=== PATIENT | male | born 1955 | race Caucasian/White ===

== ENCOUNTER → 2016-11-28 | Outpatient (CLI) | payer OTHER ==
[2016-11-28 14:40] LABS: CHOLESTEROL/HDL RATIO 3.2
[2016-11-28 17:22] LABS: LYME DISEASE AB IGM NEG (NEG)
[2016-11-28 17:25] LABS: LYME DISEASE AB IGG NEG (NEG)
== END | disposition home or self-care (01) ==
LOC: C.LABBC 11:59
PROVIDERS: ATTEND Physician Assistant Medical
DX: Z00.00 Encounter for general adult medical examination without abnormal findings (principal); M54.2 Cervicalgia; Z11.59 Encounter for screening for other viral diseases

== ENCOUNTER → 2017-03-04 | Outpatient (CLI) | payer OTHER ==
--- NOTE | 2017-03-04 17:23 | DIAGNOSTIC IMAGING REPORT ---
CERVICAL SPINE 2 OR 3 VIEWS HISTORY: Pain M54.2 Neck [id number] COMPARISON: None. FINDINGS: The cervical spine is visualized from C1 through the superior endplate of T1. Reversal of the normal cervical curvature. Partial fusion of the C3-C4 vertebral bodies. No evidence for compression deformity. C1-C2 complex is intact. Mild calcification of the carotid vasculature. Prevertebral soft tissues and the atlantodens interval are intact. IMPRESSION: 1. Muscle spasm. 2. Moderate degenerative change including degenerative partial fusion of C3-C4. 3. No acute bony abnormality. The above report was generated using voice recognition software. It may contain grammatical, syntax or spelling errors. Electronically signed by: August Figueroa M.D. 03/04/2017 5:22 PM Dictated Date/Time: 03/04/2017 5:21 PM
== END | disposition home or self-care (01) ==
LOC: C.RAD 16:55
PROVIDERS: ATTEND Internal Medicine
DX: M62.838 Other muscle spasm (principal); M50.31 Other cervical disc degeneration, high cervical region

== ENCOUNTER 2023-07-30 05:05 | Observation (INO) ==
--- NOTE | 2023-05-20 09:58 | PAT Medication Instructions ---
Medication Instructions Date of Service May 20, 2023 Home Medications Medication Instructions Recorded lisinopril 10 mg tablet 10 mg PO DAILY #90 tabs 11/19/22 methylprednisolone 4 mg tablets in 4 mg PO UD #1 packet 04/10/23 a dose pack buprenorphine 8 mg-naloxone 2 mg sublingual tablet 2 tab sublingual DAILY PRN Pain lisinopril 10 mg tablet 10 mg PO DAILY methylprednisolone 4 mg tablets in a dose pack 4 mg PO UD Continue as directed methylprednisolone 4 mg tablets in a dose pack 4 mg PO UD buprenorphine 8 mg-naloxone 2 mg sublingual tablet 2 tab sublingual DAILY PRN Pain DO NOT take the morning of surgery lisinopril 10 mg tablet 10 mg PO DAILY Other Notes If you have any questions please call us at [phone] or [phone] or [phone] or [phone]
--- NOTE | 2023-07-22 09:42 | Anesthesiology Consultation ---
Date of Service July 22, 2023 Assessment & Plan (1) Encounter for pre-operative examination: Chart Review Chart Review: Acceptable Risk for Surgery and Patient seen in Pre Admission Testing - Patient is not an ideal OPJ candidate Per PAT appt on 07/22/23, no recent illness/disease exposures, illness related symptoms, or recent illness/disease positive tests. Will leave to surgeon's discretion if preop Covid testing needed Patient seen by PCP 06/26/23= seen for follow up on HTN. Feels well todayasymptomatic. Manual BP readings at goal. No changes to medication at this timelisinopril just recently increased 6 days ago. Follow-up in 1 month. Teaching & Discussion Pre-Anesthesia Teaching/Discussion Notes: Instructed NPO after midnight before surgery,except medications with 15 cc of water. Medication instructions provided according to the [facility] guidelines. History Surgery Operation Date: 07/30/23 07:00 Proposed Procedures p Left Total Hip Arthroplasty - Compa Grant MD Height/Weight Height: 6 ft Weight: 113 kg Allergies Allergy/AdvReac Type Severity Reaction Status Date / Time No Known Allergies Allergy Verified 07/17/23 12:52 Medications Home Medications Medication Instructions Recorded Confirmed Last Taken buprenorphine 8 mg-naloxone 2 mg 2 tab sublingual QAM Pain 02/15/21 07/17/23 Unknown sublingual tablet diclofenac sodium 75 mg 75 mg PO BID PRN Pain 07/17/23 07/17/23 Unknown tablet,delayed release lisinopril 10 mg tablet 20 mg PO QAM 07/17/23 07/17/23 Unknown Past Medical History Medical History (Updated 07/22/23 @ 14:32 by Aline Rose PA-C) Chronic pain History of shingles Questionable - around 2020 HTN (hypertension) Hx of drug abuse approx 15 yrs ago Neuropathy Mild- feet Obesity Osteoarthritis Right shoulder pain has had torn rotator cuff x yrs Sensorineural hearing loss of both ears Systolic ejection murmur ECHO 2019 showed no significant valvular pathology No significant murmur noted at PAT appt 07/22/23 (heart sounds mildly diminished) Exercise / Class Metabolic Activity II 4-5 Yardwork/Stairs/Walk up hill (one flight of stairs - no chest pain or SOB ) Past Family History Family History Mother Ovarian cancer Uncle Family history of esophageal cancer Other No family history of adverse response to anesthesia Denies family history of Prostate cancer Myocardial infarction Breast cancer Colorectal cancer Past Surgical History Surgical History History of esophagogastroduodenoscopy (EGD) History of right inguinal hernia repair History of tooth extraction Hx of basal cell carcinoma excision Hx of colonoscopy Status post osteotomy left foot--hardware in place Past Anesthesia History No Hx of Anesthesia Complications and No Family Hx of Anesthesia Complications History of PONV No Hx of PONV and No Hx of Motion Sickness Social History Smoking Status: Former smoker tobacco type: cigarettes Do You Dip or Chew Tobacco: No Smoking End Date: approx 2016 Hx Alcohol Use: Yes Alcohol type: beer and wine alcohol intake frequency: a few times a month Hx Substance Use: No substance use type: does not use Last Used Substance: Unknown Review of Systems - Occ chest pressure (right lower chest) - x many years - not getting any more frequent- no nausea, SOB, or sweating associated; drinking water usually resolves issue. Occurs once every few months- last less than a minute. Last episode over one month ago. Not associated with activity. Usually after eating (Discussed with Dr. Torres- seems more consistent with esophageal spasm which patient agrees- patient will contact office if episode occurs again but otherwise patient can proceed as scheduled) - Occ snoring- no hx of sleep study Patient denies chest pain, shortness of breath, dyspnea on exertion, reflux, cough, wheezing, palpitations. No hx of seizures, stroke, CA. No hx of blood clots or blood transfusions Physical Exam Vital Signs VITALS BP 174/76 (manually- patient anxious about upcoming surgery; did not sleep well last night- did take Vicks this morning along with sleeping pill last night; seen by PCP 06/26/23 for HTN- BP on repeat at PCP office was 136/80)) P 75 TEMP 98.0 SP02 95% RESP 16 Constitutional no acute distress ENMT Mouth: no TMJ clicking Thyromental Distance: > or= 3.5 Finger Breadths (3.5) Mallampati Class: III Missing all teeth Neck + limited neck extension (significant) Respiratory normal respiratory effort; no respiratory distress Auscultation: lungs clear to auscultation bilaterally; no wheezes Cardiovascular Rate/Rhythm: regular rate and regular rhythm Heart Sounds: no murmur Vessels: no carotid bruit Heart sounds mildly diminished throughout (no significant murmur noted) Musculoskeletal Spine: no pain with cervical ROM Extremities: extremities normal to inspection Psychiatric Orientation: alert Lab Results Anesthesia Preop Results Results Anesthesia Widget: WBC 5.79 K/ul (4.8-10.8) 07/22/23 Hgb 13.5 g/dl (14.0-18.0) L 07/22/23 Hct 41.6 % (42.0-52.0) L 07/22/23 Plt 235 K/uL (130-400) 07/22/23 Na 140 mmol/L (136-145) 07/22/23 K 3.9 mmol/L (3.5-5.1) 07/22/23 Cl 105 mmol/L (98-107) 07/22/23 CO2 29 mmol/L (21-32) 07/22/23 BUN 17 mg/dl (6-23) 07/22/23 Creat 0.85 mg/dl (0.6-1.4) 07/22/23 Glucose Level 86 mg/dl (70-99(Fasting)) 07/22/23 PT 10.3 Seconds (9.0-12.0) 07/22/23 PTT 29 Seconds (21-31) 07/22/23 INR 0.9 (0.9-1.1) 07/22/23 Blood Type O Positive 07/22/23 Antibody Screen NEGATIVE 07/22/23 Testing Electrocardiogram Date: 07/22/23 SR with 1st degree AVB at 68bpm Otherwise normal EKG per cardio Chest X-Ray Date: 07/22/23 Findings: + NAD FINDINGS: The lungs are clear. Cardiac silhouette is normal in size. No pleural effusions. No pneumothorax. Calcifications within the aortic knob Echocardiogram Date: 03/17/19 EF: 55-60% LV Function: normal RWMA: + none Other Findings: + LVH (mild/concentric ) and + diastolic dysfunction (Grade I ) Valvular Disease: + no significant valvular disease
--- NOTE | 2023-07-26 10:19 | History & Physical Report ---
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 He is failed conservative measures. He is ready to proceed with hip replacement. Plan: Orgran proceed with a left total hip replacement. The risks Mente this procedure planed the patient clued but not limited to DVT PE infection neurological and vascular bleeding palm pain limb range of motion sepsis fairly with symptoms incomplete relief of symptoms excetra. The patient understands and desires to proceed. Informed consent is obtained. I did tell him we will do the best we can get his leg lengths equal as possible. He is going need hip surgery on his other side at some point in the [id number] future as well. Will make measurements at the time to help us guide this. As far as discharge plans he is planned to be discharged home using [facility] program. His will assist in his care. He is use aspirin for DVT prophylaxis. (2) Arthritis of right hip: History of Present Illness Chief Complaint: . Bilateral hip pain and discomfort left side greater than the right. Primary Care Provider: Rafal Madera DO . 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 Del Toro now for treatment of his hips. He is got a long history of bilateral hip pain discomfort describes gotten worse over time. He has been through extensive conservative treatment including medicines as well as injections. They become less successful over time. Left hip bothers more than the right. 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 He now like to have his hips fixed. The left one is bothering more than the right. Allergies Allergy/AdvReac Type Severity Reaction Status Date / Time No Known Allergies Allergy Verified 07/17/23 12:52 Home Medications Medication Instructions Recorded Confirmed Type buprenorphine 8 mg-naloxone 2 mg 2 tab sublingual QAM Pain 02/15/21 07/17/23 History sublingual tablet diclofenac sodium 75 mg 75 mg PO BID PRN Pain 07/17/23 07/17/23 History tablet,delayed release lisinopril 10 mg tablet 20 mg PO QAM 07/17/23 07/17/23 History Past Med/Surg History Medical History Hx of drug abuse approx 15 yrs ago Right shoulder pain has had torn rotator cuff x yrs Osteoarthritis Obesity Sensorineural hearing loss of both ears Systolic ejection murmur ECHO 2019 showed no significant valvular pathology No significant murmur noted at PAT appt 07/22/23 (heart sounds mildly diminished) History of shingles Questionable - around 2020 Neuropathy Mild- feet HTN (hypertension) Chronic pain Surgical History Hx of colonoscopy Hx of basal cell carcinoma excision History of esophagogastroduodenoscopy (EGD) History of tooth extraction History of right inguinal hernia repair Status post osteotomy left foot--hardware in place Family History Mother Ovarian cancer Uncle Family history of esophageal cancer Other No family history of adverse response to anesthesia Denies family history of Prostate cancer Myocardial infarction Breast cancer Colorectal cancer Social History Smoking Status: Former smoker Tobacco Type: Cigarettes Age Quit Using Tobacco: 60; packs per day: 1; Second Hand Exposure: No; Do You Dip or Chew Tobacco: No; Hx Alcohol Use: Yes Alcohol type: beer and wine Alcohol Intake Frequency: 2-4 x/Month Hx Substance Use: No Preferred Language: Bhutanese Communication Ability: Effective Visual Impairment: No Limitations Hearing Ability: Normal Adding Machine Servicer Required: No Beliefs That Will Affect Care: None marital status: Current Living Situation: Spouse current occupational status: employed 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 Physical Exam . Physical examination reveals a pleasant middle-age male who looks to be in pretty good health. Examination of the lower legs and hips reveal patient walks with a markedly antalgic gait. He limps and waddles when he walks. Examination of the leg lengths reveal about maybe a half a centimeter shorter on the right compared to the left. Both hips are very stiff with a limited internal rotation neutral at best. Negative straight leg raise bilaterally. He is neurologically intact bilaterally. Constitutional WD/WN, vitals as above Respiratory normal respiratory effort, lungs clear to auscultation Cardiovascular RRR, no murmur, no edema Gastrointestinal (Abdomen) normal bowel sounds, soft, nontender, no hepatosplenomegaly Results & Data Results & Data Laboratory Results . Diagnostic Findings . X-rays of both hips were reviewed. Shows advanced bilateral hip arthritis. Is got complete loss of the superior joint space bilaterally P got cystic changes on both sides of the joint. Significant osteophytes as well. PG Care Time/CCT Total # of Minutes Spent Total Time Spent with Patient: Total time spent is greater than 50% in coordination of care (as documented) at patient's floor/unit and/or counseling patient: Coding Level of Care Code None Diagnoses Degenerative joint disease of left hip M16.12 Arthritis of right hip M16.11
[2023-07-30] MEDS: ACETAMINOPHEN 500 MG TAB PO SCH ×2 (05:49→11:38)
[2023-07-30] MEDS: CeleBREX 200 MG CAP PO SCH (05:50)
[2023-07-30] MEDS: dexAMETHasone**PF** 10 MG/ML VIAL IV SCH (05:50)
[2023-07-30] MEDS: FAMOTIDINE 20 MG TAB PO SCH (05:50)
[2023-07-30] MEDS: METOCLOPRAMIDE HCL 10 MG TABLET PO SCH (05:50)
[2023-07-30] MEDS: LR 500ML BOLUS, THEN 15ML/HR IV SCH (05:52)
[2023-07-30] MEDS: LR 60ML/HR IV SCH (05:52)
[2023-07-30] MEDS: Scopolamine 1 MG TDSY TD SCH (05:52)
[2023-07-30] MEDS ORDERED: BUPIVACAINE 0.5 % 5 MG/1 ML PF 10ML VIAL ONE (06:12)
[2023-07-30] MEDS ORDERED: MIDAZOLAM HCL 1 MG/ML 2ML VIAL ONE ×2 (06:45→06:54)
[2023-07-30] MEDS ORDERED: fentaNYL citrate PF 100 MCG/2 ML VIAL ONE (06:46)
[2023-07-30] MEDS ORDERED: MoRPHine SULFATE PF 1 MG/ML 10 ML AMP/VIAL ONE (06:46)
[2023-07-30] MEDS ORDERED: DexMEDEtomidine HCL IV 100 MCG/ML VIAL IV ONE (06:48)
[2023-07-30] MEDS: TRANEXAMIC ACID 1,000 MG **IV Pre-op IV SCH (06:51)
--- NOTE | 2023-07-30 06:58 | History & Physical Bridge Note ---
Date of Service July 30, 2023 History & Physical Bridge Note I have examined the patient, reviewed the History & Physical and in the interval since the performance of the History & Physical I have noted the following changes of clinical significance: no changes noted
[2023-07-30] MEDS: ceFAZolin 2000MG 2,000 MG/15 ML SYR IV SCH ×2 (07:03→16:17)
[2023-07-30] MEDS ORDERED: ONDANSETRON INJ 2 MG/ML 2 ML VIAL ONE (07:15)
[2023-07-30] MEDS ORDERED: PROPOFOL IV EMULSION 10 MG/ML 20 ML VIAL IV ONE ×2 (07:15→07:50)
[2023-07-30] MEDS ORDERED: PROMETHAZINE HCL 6.25 MG in SODIUM CHLORIDE 0.9% 50 ML IV PRN (07:25)
[2023-07-30] MEDS ORDERED: HYDROmorphone INJ 2 MG/ML SYR/VIAL IV PRN (07:25)
[2023-07-30] MEDS ORDERED: ePHEDrine sulfate 50 MG/ML AMP IV PRN (07:25)
[2023-07-30] MEDS ORDERED: ATROPINE SULFATE 0.1 MG/ML 10ML SYR IV PRN (07:25)
[2023-07-30] MEDS ORDERED: fentaNYL citrate PF 100 MCG/2 ML VIAL IV PRN (07:25)
[2023-07-30] MEDS ORDERED: ONDANSETRON INJ 2 MG/ML 2 ML VIAL IV PRN ×2 (07:25→09:57)
[2023-07-30] MEDS ORDERED: PHENYLEPHRINE 100MCG/ML 10ML SYR IV ONE (08:16)
[2023-07-30] MEDS: BUPIVACAINE/EPINEPHRINE 0.5% MPF 1:200,000 30 ML VIAL ONE (08:23)
--- NOTE | 2023-07-30 08:53 | Operative Report ---
PG Post Operative Report Pre & Post Diagnosis Operation Date: 07/30/23 07:00 Pre-Op Diagnosis: Left Hip Degenerative Joint Disease Post-Op Diagnosis: Left Hip Degenerative Joint Disease I identified the patient and participated in the time-out.: Yes Procedure Operation Date: 07/30/23 07:00 Actual Procedures p Left Total Hip Arthroplasty(Left) - Compa Grant MD Surgeon Compa Grant MD Equal Opportunity Assistant Tu García PA-C Estimated Blood Loss 200 Findings Consistent with Post-Op Diagnosis Operative findings were advanced left hip DJD. He had extensive grade 4 [id number] disease of the femoral head and acetabulum. Large anterior acetabular osteophyte. Moderate-sized joint effusion. A very stiff hip. Specimens Left femoral head sent for pathology. Anesthesia Type Spinal MAC Complications none Disposition Accompanied Patient To Recovery: No Indications Patient is a 68-year-old fairly active gentleman with a several year history of bilateral hip pain and discomfort got markedly worse over the past year. He has become more debilitated by his hips. X-rays show advanced bilateral hip arthritis. He elected proceed with left total hip arthroplasty. Description of Procedure Operative implants consist of: 1 Biomet G7 size 60 mm acetabular shell. 2. [place] hole scoop filler. 3. 6.5 cancellous acetabular screws 1 at 35 mm in length 125 mm light. 4. Highly cross-linked polyethylene liner with 60 mm outer diameter and 40 mm inner diameter. 5. DePuy Kar[place] size 14 KLA femoral stem. 6. +5/40 mm ceramic articular ball. The patient was taken to the operating, identified, placed on the operating table in the supine position. All contact areas were appropriately padded. IV antibiotic 5 by anesthesia team. A spinal anesthetic been implemented holding area. Patient then placed in the right lateral decubitus position. An axillary roll was placed. Distal Birkett position was used for positioning. The left hip and leg were then prepped and draped in usual sterile fashion. A posterolateral approach the left hip was then performed with a curvilinear incision centered over the greater trochanter. Sharp dissection was carried through subcutaneous tissue down of the IT band gluteal fascia. The IT band gluteal fascia was sized longitudinally in line with skin incision. The underlying greater bursa was excised. The piriformis and external rotators along with the posterior hip joint capsule were then released from the posterior aspect hip as a single layer. Great care was taken throughout the procedure protect the sciatic nerve at all times. Hip was internally rotated and dislocated. Femoral neck osteotomy cut was made with Final Cut 2 cm above the lesser trochanter. We measured this for the opposite side. Femoral head was removed and sent for pathology. The femur was retracted anteriorly. Attention drawn the acetabulum. The acetabular labrum was excised. The pulmonary fat was excised. Sequential reaming the acetabular was then performed given the size 47 progressing up to 59. I reamed a little with a 60 reamer and then placed a 60 mm cup in about 40 degrees lateral opening and 20 degrees of anteversion. We had used the offset brush or broom cutter in order to get adequate anteversion. It was fixed with 2 screws. A large anterior osteophyte was removed. Trial liner was placed. Attention drawn the femur. Proximal femur then with a BeFunky cutter followed by canal finder. I then broached beginning with size 8 and progressing up to 14 weight. We got excellent fitted to 14. We trialed the hip and the +5 articular ball provide full stability in full extension and external rotation flexion to 90 degrees internal rotation to over 50. However, on the flexing it way up it did seem to sublux a little bit inferior I think probably due to the positioning device but we elect to place a sargent inferior in order to maximize stability. All trial implants were removed. A highly cross-linked polyethylene liner with a sargent placed inferior and posterior was then placed. A size 14 KLA femoral stem was impacted in position. +5/40 mm ceramic articular ball was placed. Hip was located and once again found to be stable. Attention drawn toward closing. The wound was irrigated copious also pulsatile lavage solution. I did inject locally with 60 cc of half percent Marcaine with epinephrine. Patient did receive 1 g tranexamic acid. He had gotten this before the procedure started. The posterior capsule and external rotators were then repaired through drill holes in the posterior trochanter with #2 Tycron suture. The IT band gluteal fascia then closed in 1 PDS suture running fashion for subcutaneous tissue then closed with 2 layers of the deep layer #1 Vicryl suture in the subcutaneous tissues with 2-0 Dexon suture in a buried interrupted fashion. Skin was closed with skin tabitha. Leg was then cleaned and dried and a sterile dressing with Xeroform, 4 fours, sterile ABD pad and foam tape was applied. The patient then transferred to the recovery room in stable condition. The patient tolerated procedure well and there were no complications. Tu García, my physician operational assistant, was present for the entire procedure. His assistance was essential and required for appropriate patient positioning, prepping and draping, surgical exposure, performing the technical details of the operation, placement the implants, closure of the wound, and placement of the sterile bandage. I attest to the content of the Intraoperative Record and any orders documented therein. Any exceptions are noted below.
--- NOTE | 2023-07-30 09:32 | Anesthesiology Progress Note ---
Date of Service July 30, 2023 Anesthesia Post Procedure Vital Signs Vital Signs: Temp Pulse Resp BP BP Pulse Ox O2 Del Method 07/30/23 09:20 36.4 C L 68 17 122/50 L 94 Room Air 07/30/23 09:10 71 14 112/67 94 Room Air 07/30/23 09:00 77 16 110/65 95 Room Air 07/30/23 08:50 78 15 112/50 L 91 Room Air 07/30/23 08:41 36.4 C L 80 12 108/44 L 94 Room Air 07/30/23 05:37 36.5 C 90 20 159/94 H 95 Room Air Transfer of Care Handoff Completed per policy Notes Mental Status: alert / awake / arousable and participated in evaluation Nausea / Vomiting: adequately controlled Pain: adequately controlled Airway Patency, RR, SpO2: stable & adequate BP & HR: stable & adequate Hydration State: stable & adequate Neuraxial Anesthesia: was administered and sensory block is resolving Anesthetic Complications: no major complications apparent and Pt Satisfied with anesthetic care
[2023-07-30] MEDS ORDERED: bisacodyL 10 MG SUPP PR PRN (09:57)
[2023-07-30] MEDS ORDERED: ALUMINUM/MAGNESIUM SUSP 30 ML UDC PO PRN (09:57)
[2023-07-30] MEDS ORDERED: MAGNESIUM HYDROXIDE SUSP 30 ML UDC PO PRN (09:57)
[2023-07-30] MEDS ORDERED: METOCLOPRAMIDE HCL INJ 5 MG/ML 2 ML VIAL IV PRN (09:57)
[2023-07-30] MEDS ORDERED: NALOXONE HCL 0.4 MG/1 ML VIAL/CARP IV PRN (09:57)
--- NOTE | 2023-07-30 10:20 | XRay Report ---
AP PELVIS, CROSSTABLE LATERAL LEFT HIP History: Left total hip arthroplasty. Degenerative arthritis. Postop. FINDINGS: The patient is status post a left total hip arthroplasty. The hardware is intact. No fractu re or dislocation. Skin tabitha are in place. IMPRESSION: Left total hip arthroplasty. No evidence for hardware complication. ACT 112: Negative or not required by law. Electronically signed by: Denny Ballesteros M.D. 07/30/2023 10:19 AM
[2023-07-30] MEDS: SODIUM CHLORIDE 0.9% 1,000 ML IV SCH (11:36)
[2023-07-30] MEDS: MULTIVITAMIN TAB PO SCH (11:37)
[2023-07-30] MEDS: lisinopril 20 MG TAB PO SCH (11:37)
[2023-07-30] MEDS: DOCUSATE SODIUM 100 MG CAP PO SCH (11:37)
[2023-07-30] MEDS: TAMSULOSIN HCL 0.4 MG CAP PO SCH (11:37)
[2023-07-30] MEDS: ASPIRIN 81 MG ECTAB PO SCH (11:38)
[2023-07-30] MEDS: SENNA 8.6 MG TAB PO SCH ×2 (11:40→20:44)
[2023-07-30] MEDS: KETOROLAC TROMETHAMINE 15 MG/ML VIAL IV SCH (12:14)
[2023-07-30] MEDS: TRANEXAMIC ACID / 0.7% NACL 1,000 MG/100 ML BAG IV SCH (14:29)
[2023-07-30] MEDS: traMADol HCL 50 MG TABLET PO PRN (15:09)
[2023-07-30] MEDS: Scopolamine CHECK PATCH PLACEMENT SCH (16:17)
[2023-07-30] MEDS: ASCORBIC ACID 500 MG TAB PO SCH (16:18)
[2023-07-30] MEDS: HYDROmorphone INJ 0.5 MG/0.5 ML SYR IV PRN (19:30)
--- NOTE | 2023-07-31 07:22 | Surgery Progress Note ---
Date of Service July 31, 2023 Assessment & Plan (1) Status post left hip replacement: Plan: 68-year-old gentleman postop day 1 from left hip replacement doing well. His pain is controlled. Hips located. He is neurologically intact. Plan: 1. DVT prophylaxis including thigh-high teds, SCDs, aspirin twice a day. 2. PT/OT. Weight-bear as tolerated. Left total hip protocol. 3. Pain control doing okay with current pain regimen. 4. Disposition plan to discharge home with some home health later today if does okay in therapy. Admission and Anticipated Discharge Date Admission Date: July 30, 2023 Subjective 68-year-old gentleman postop day 1 from a left hip replacement. He is doing well. Pain is controlled. He is gotten up and ambulated. No chest pain or shortness of breath. Hoping to go home today. Physical Exam Physical Exam: Physical exam shows a pleasant middle-age male. Lying bed looks comfortable. Examination of left hip reveals dressing be clean dry and intact. Leg is well aligned. Leg lengths are equal. Hips located. He is neurologically intact. Thigh is soft and supple Respiratory: normal respiratory effort, lungs clear to auscultation Cardiovascular: RRR, no murmur, no edema Gastrointestinal (Abdomen): normal bowel sounds, soft, nontender, no hepatosplenomegaly Results & Data Vital Signs (Past 12 Hours) Vital Signs Temp Pulse Resp BP BP Pulse Ox O2 Del Method 07/31/23 06:58 36.6 C 65 18 157/72 H 95 Room Air 07/31/23 03:25 36.7 C 69 16 155/71 H 96 Room Air 07/30/23 23:49 36.4 C L 64 16 171/73 H 171/79 H 95 Room Air Laboratory Results Labs are pending. PG Care Time/CCT Total # of Minutes Spent Total Time Spent with Patient: Total time spent is greater than 50% in coordination of care (as documented) at patient's floor/unit and/or counseling patient: Coding Level of Care Code 45022 Post Operative Follow-Up Diagnoses Status post left hip replacement Z96.642
[2023-07-31 07:26] LABS: Basophils # (auto) 0.01 K/uL (0.00-0.20); Basophils % (auto) 0.1 %; Eosinophils # (auto) 0.01 K/uL (0.00-0.50); Eosinophils % (auto) 0.1 %; Hematocrit (blood only) 34.2 % (42.0-52.0); Hemoglobin 11.5 g/dl (14.0-18.0); Immature Granulocytes # (auto) 0.07 K/uL (0.01-0.20); Immature Granulocytes % (auto) 0.6 %; Lymphocytes % (auto) 10.9 %; Mean Corpuscular Hemoglobin 29.2 pg (25.0-34.0); Mean Corpuscular Hgb Conc 33.6 g/dL (32.0-36.0); Mean Corpuscular Volume 86.8 fL (80.0-100.0); Mean Platelet Volume 8.7 fL (9.4-12.4); Monocytes % (auto) 13.6 %; Neutrophils # (auto) 8.22 K/uL (1.40-6.50); Neutrophils % (auto) 74.7 %; Platelet Count 228 K/uL (130-400); RDW Coefficient of Variation 12.8 % (11.5-14.5); RDW Standard Deviation 39.9 fL (36.4-46.3); Red Blood Count 3.94 M/uL (4.70-6.10); White Blood Count 11.01 K/ul (4.8-10.8)
[2023-07-31 07:55] LABS: BUN Creatinine Ratio 26.2 (10-20); Calcium 8.4 mg/dl (8.6-10.3); Est GFR (African American) 104.3 ml/min; Potassium 3.8 mmol/L (3.5-5.1)
[2023-07-31] MEDS: dexAMETHasone 10 MG in SYRINGE 0 ML IV SCH (07:59)
[2023-07-31] MEDS: BUPRENORPHINE/NALOXONE 8/2 MG TAB SL SCH (09:35)
--- NOTE | 2023-08-04 07:45 | Discharge Summary ---
Date of Service August 04, 2023 Discharge Data Procedures Performed Operation Date: 07/30/23 07:00 Actual Procedures p Left Total Hip Arthroplasty(Left) - Compa Grant MD Hospital Course (1) Status post left hip replacement: This is a 68 year old patient admitted on 07/30/23 and underwent total hip arthroplasty. He tolerated the procedure well and there were no complications. Transferred to the PACU post op and later to the orthopedic floor for further care. He was given ancef for antibiotic prophylaxis. He was also given NABEEL stockings, SCDs, and aspirin for DVT prophylaxis. Hemoglobin, hematocrit, and vital signs were monitored during his hospital stay and remained stable. Did not require any blood transfusions. There were no complications during his hospital stay. By post op day #1 the patient was tolerating a regular diet, pain was reasonably controlled with oral pain medicine, and he was participating in physical therapy. On post op day #1 the patient was discharged home and set up with home health care. He was given printed discharge instructions including prescriptions for extra strength tylenol, aspirin, ketorolac, zofran, senokot, tramadol, and flomax. Continue hip precautions. Continue physical therapy, weight bearing as tolerated. Continue NABEEL stockings. Follow up approximately 2 weeks post op or sooner if there are problems or concerns. Coding Level of Care Code None Diagnoses Status post left hip replacement Z96.642
== END 2023-07-31 10:29 | disposition home health service (06) ==
LOC: ASU 05:05 → 3E 05:05

== ENCOUNTER 2024-03-11 05:10 | Observation (INO) ==
--- NOTE | 2024-01-28 12:32 | PAT Medication Instructions ---
Medication Instructions Date of Service January 28, 2024 Home Medications Medication Instructions Recorded diclofenac sodium 75 mg 75 mg PO BID PRN pain #60 tabs 11/24/23 tablet,delayed release celecoxib 100 mg capsule (Celebrex) 100 mg PO BID #60 caps 01/07/24 tizanidine 4 mg capsule 4 mg PO TID PRN muscle spasticity 01/16/24 #30 caps buprenorphine 8 mg-naloxone 2 mg sublingual tablet 2 tab sublingual QAM lisinopril 10 mg tablet 10 mg PO QAM diclofenac sodium 75 mg tablet,delayed release 75 mg PO BID PRN celecoxib 100 mg capsule (Celebrex) 100 mg PO BID tizanidine 4 mg capsule 4 mg PO TID PRN ASK your surgeon for instructions diclofenac sodium 75 mg tablet,delayed release 75 mg PO BID PRN celecoxib 100 mg capsule (Celebrex) 100 mg PO BID DO NOT take the morning of surgery lisinopril 10 mg tablet 10 mg PO QAM Take morning of surgery With a small sip of water, OTHERWISE NOTHING TO EAT OR DRINK AFTER MIDNIGHT: buprenorphine 8 mg-naloxone 2 mg sublingual tablet 2 tab sublingual QAM tizanidine 4 mg capsule 4 mg PO TID PRN(if needed) Take evening before surgery tizanidine 4 mg capsule 4 mg PO TID PRN(if needed) Other Notes If you have any questions please call us at [phone] or [phone] or [phone] or [phone]
--- NOTE | 2024-02-02 11:56 | Anesthesiology Consultation ---
Date of Service February 02, 2024 Assessment & Plan (1) Encounter for pre-operative examination: - Outpatient joint assessment: Patient is currently scheduled for inpatient pathway. If re-evaluated and patient/surgeon requests outpatient pathway, patient is not ideal candidate for outpatient joint program from anesthesia standpoint. Chart Review Chart Review: Acceptable Risk for Surgery and Patient seen in Pre Admission Testing Teaching & Discussion Pre-Anesthesia Teaching/Discussion Notes: Instructed NPO after midnight before surgery, except medications with 15 cc of water. Medication instructions provide d according to the PAT guidelines. History Surgery Operation Date: 03/11/24 07:00 Proposed Procedures p Right Total Hip Arthroplasty - Compa Grant MD Height/Weight Height: 6 ft Weight: 114.4 kg Allergies Allergy/AdvReac Type Severity Reaction Status Date / Time No Known Allergies Allergy Verified 01/27/24 09:53 Medications Home Medications Medication Instructions Recorded Confirmed Last Taken buprenorphine 8 mg-naloxone 2 mg 2 tab sublingual QAM Pain 02/15/21 01/27/24 07/30/23 04:00 sublingual tablet lisinopril 10 mg tablet 10 mg PO QAM 07/17/23 01/27/24 07/29/23 05:00 diclofenac sodium 75 mg 75 mg PO BID PRN pain #60 tabs 11/24/23 01/27/24 Unknown tablet,delayed release celecoxib 100 mg capsule (Celebrex) 100 mg PO BID #60 caps 01/07/24 01/27/24 Unknown tizanidine 4 mg capsule 4 mg PO TID PRN muscle spasticity 01/16/24 01/27/24 Unknown #30 caps Past Medical History Medical History (Updated 02/02/24 @ 14:07 by April Bird PA-C) Degenerative joint disease of left hip History of shingles Questionable - around 2020 HTN (hypertension) controlled, stable per pt Hx of drug abuse approx 15 yrs ago Lumbar radiculopathy Neuropathy Mild- feet Right shoulder pain has had torn rotator cuff x yrs Systolic ejection murmur ECHO 2018 showed no significant valvular pathology No significant murmur noted at PAT appt 07/22/23 and 02/02/24 (heart sounds mildly diminished) Tinnitus of both ears Patient denies h/o stroke, seizures, heart attack, heart failure, DM, blood clots/DVTs or blood transfusions. Exercise / Class Metabolic Activity III < 4 Walking/Shop/Light housework (denies chest discomfort or shortness of breath with usual activities, ambulates with cane) Past Family History Family History Mother Ovarian cancer Uncle Family history of esophageal cancer Other No family history of adverse response to anesthesia Denies family history of Prostate cancer Myocardial infarction Breast cancer Colorectal cancer Past Surgical History Surgical History History of esophagogastroduodenoscopy (EGD) History of right inguinal hernia repair History of tooth extraction History of total left hip replacement 07/30/23 Hx of basal cell carcinoma excision Hx of colonoscopy Status post osteotomy left foot--hardware in place Past Anesthesia History No Hx of Anesthesia Complications and No Family Hx of Anesthesia Complications History of PONV No Hx of PONV and No Hx of Motion Sickness Social History Smoking Status: Former smoker tobacco type: cigarettes Do You Dip or Chew Tobacco: No Smoking End Date: over 5 years ago Hx Alcohol Use: Yes Alcohol type: beer and wine alcohol intake frequency: holidays/special occasions only Hx Substance Use: Yes substance use type: former substance user Last Used Substance: Unknown Last Used Substance Other:: 30 years ago-"I used them all" Review of Systems Snoring, denies witnessed apneas. Patient denies chest pain, shortness of breath, dyspnea on exertion, reflux, fever, chills, cough, wheezing, or palpitations. Physical Exam Vital Signs Vitals BP 138/73 P 64 TEMP 97.9 SP02 97% on RA RESP 18 Physical Patient resting comfortably in chair in no acute distress, alert and oriented, responding appropriately throughout visit Full cervical extension range of motion without pain TMD 3.5 finger breadths Mallampati Score 2 Dentition: intact, denies chipped or loose teeth, caps/crowns, implants or bridges Lungs: normal respiratory effort. Good air movement, clear throughout to auscultation, no adventitious breath sounds Cardiac: regular rate and rhythm, no murmurs noted Carotid arteries: negative bruit bilat Lab Results Anesthesia Preop Results Results Anesthesia Widget: WBC 5.80 K/ul (4.8-10.8) 02/02/24 Hgb 11.5 g/dl (14.0-18.0) L 02/02/24 Hct 35.5 % (42.0-52.0) L 02/02/24 Plt 260 K/uL (130-400) 02/02/24 Na 140 mmol/L (136-145) 02/02/24 K 3.8 mmol/L (3.5-5.1) 02/02/24 Cl 106 mmol/L (98-107) 02/02/24 CO2 28 mmol/L (21-32) 02/02/24 BUN 25 mg/dl (6-23) H 02/02/24 Creat 1.01 mg/dl (0.6-1.4) 02/02/24 Glucose Level 112 mg/dl (70-99(Fasting)) H 02/02/24 PT 10.3 Seconds (9.0-12.0) 02/02/24 PTT 28 Seconds (21-31) 02/02/24 INR 0.9 (0.9-1.1) 02/02/24 Blood Type O Positive 02/02/24 Antibody Screen NEGATIVE 02/02/24 Testing Laboratory Results H&H discussed with Dr. Canales who advised nothing additional is needed given H&H stability since 07/31/23. Electrocardiogram Date: 07/22/23 Sinus rhythm with 1st degree AV block, rate 68 bpm Chest X-Ray Date: 07/22/23 No acute process. Echocardiogram Date: 03/17/19 EF 55-60% Normal LV wall motion Mild cLVH No significant valvular pathology Grade I diastolic dysfunction
--- NOTE | 2024-03-07 21:36 | History & Physical Report ---
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 He is failed conservative measures. He happy with the left hip and would like to have his right hip replaced. Will try and equalize his leg lengths. Plan: Hipolito taken the operating do right total hip placement the risks Mente this procedure explained and he understands. Informed consent was obtained. He is planning on proceeding with hip replacement surgery as described above. Will try and equalize his leg lengths. The risks and benefit procedure were explained and he understands. Informed consent was obtained. (2) Status post left hip replacement: (3) Hypertension: (4) Chronic pain: (5) Smokes 1/2 pack per day: History of Present Illness Chief Complaint: . Persistent right hip pain discomfort and stiffness. Primary Care Provider: Rafal Madera DO . 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 He is now about 7 months out from the left hip replaced and is done well. He continues to be limited by right hip pain and discomfort. Is been going for several years. Has been treated by extensive conservative treatment by Dr. Del Toro including injections which just stopped working at all. He is having more more difficulty doing his job. He is recovered nicely from the left hip and doing well. He would like to have his right hip replaced. Allergies Allergy/AdvReac Type Severity Reaction Status Date / Time No Known Allergies Allergy Verified 01/27/24 09:53 Home Medications Medication Instructions Recorded Confirmed Type buprenorphine 8 mg-naloxone 2 mg 2 tab sublingual QAM Pain 02/15/21 01/27/24 History sublingual tablet lisinopril 10 mg tablet 10 mg PO QAM 07/17/23 01/27/24 History diclofenac sodium 75 mg 75 mg PO BID PRN pain #60 tabs 11/24/23 01/27/24 Rx tablet,delayed release celecoxib 100 mg capsule (Celebrex) 100 mg PO BID PRN pain #60 caps 02/27/24 Rx tizanidine 4 mg capsule 4 mg PO TID PRN muscle spasticity 03/02/24 Rx #18 caps Past Med/Surg History Problem List Degenerative joint disease of right hip Status post left hip replacement Arthritis of right hip Greater trochanteric pain syndrome Osteoarthritis Arthritis LDL-c greater than or equal to 100 mg/dl Dietary counseling and surveillance Obesity Lumbar radiculopathy Hip arthritis Shoulder arthritis Subacromial bursitis Greater trochanteric bursitis Knee effusion, right Synovial cyst of popliteal space [[place]], right knee Sensorineural hearing loss of both ears Headache Concussion Tinnitus of both ears Hypertension Systolic ejection murmur ECHO 2019 showed no significant valvular pathology No significant murmur noted at PAT appt 07/22/23 (heart sounds mildly diminished) Paresthesia of both feet Chronic pain (Acute) Chronic pain of left heel (Acute) Smokes 1/2 pack per day (Acute) Left shoulder pain (Acute) Medical History Systolic ejection murmur ECHO 2018 showed no significant valvular pathology No significant murmur noted at PAT appt 07/22/23 and 02/02/24 (heart sounds mildly diminished) Tinnitus of both ears Lumbar radiculopathy Degenerative joint disease of left hip Hx of drug abuse approx 15 yrs ago Right shoulder pain has had torn rotator cuff x yrs History of shingles Questionable - around 2020 Neuropathy Mild- feet HTN (hypertension) controlled, stable per pt Surgical History History of total left hip replacement 07/30/23 Hx of colonoscopy Hx of basal cell carcinoma excision History of esophagogastroduodenoscopy (EGD) History of tooth extraction History of right inguinal hernia repair Status post osteotomy left foot--hardware in place Family History Mother Ovarian cancer Uncle Family history of esophageal cancer Other No family history of adverse response to anesthesia Denies family history of Prostate cancer Myocardial infarction Breast cancer Colorectal cancer Social History Smoking Status: Former smoker Tobacco Type: Cigarettes Age Quit Using Tobacco: 60; packs per day: 1; Smoking End Date: over 5 years ago; Second Hand Exposure: No; Do You Dip or Chew Tobacco: No; Tobacco Cessation Education Requested by Patient: No Hx Alcohol Use: Yes Alcohol type: beer and wine Alcohol Intake Frequency: 2-4 x /Month Hx Substance Use: Yes Last Used Substance: Unknown Last Used Substance Other:: 30 years ago-"I used them all" Preferred Language: Romansh Communication Ability: Effective Visual Impairment: No Limitations Hearing Ability: Normal Executive Associate Required: No Beliefs That Will Affect Care: None marital status: Current Living Situation: Spouse current occupational status: employed 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 How many Children do You have: 2 Other Information That Helps Us Care for You: No Feels Safe at Home: Yes Safety Concerns: Feels Safe At This Time Childhood Exposure to Second-Hand Smoke: Yes Diet: regular caffeine: Yes during the past year weight has: decreased > 10 lbs Dental Care, Regularly: No Physical Activity Frequency: Does not Exercise Physical Activity Frequency Comment: walking 2x weekly Seatbelt Use: always Sunscreen Use: Yes Do you think of yourself as: straight/heterosexual Assistive Devices: Denture - Upper and Glasses Review of Systems All systems reviewed & are unremarkable except as noted in HPI & below. Physical Exam . Physical examination is a pleasant middle-aged male who looks in pretty good health. Examination of the right hip reveal patient walks with a significant limp. He is about a half a centimeter to a centimeter shorter on the side compared to the opposite side. He is got a very stiff hip with internal ro tation of -10 P is got pain and stiffness with internal rotation. No knee effusion. Negative straight leg raise. He is neurologically intact. Examination left hip reveals a well-healed incision. No real significant swelling. No pain with hip motion. Constitutional WD/WN, vitals as above Neck trachea midline, no thyromegaly Respiratory normal respiratory effort, lungs clear to auscultation Cardiovascular RRR, no murmur, no edema Gastrointestinal (Abdomen) normal bowel sounds, soft, nontender, no hepatosplenomegaly Results & Data Results & Data Laboratory Results . Diagnostic Findings . X-rays of the hips were reviewed. Shows advanced right hip DJD. He is got complete loss of the joint space. Got osteophytes surrounding the femoral head and acetabulum. The left hip replacement looks in good position without problems. PG Care Time/CCT Total # of Minutes Spent Total Time Spent with Patient: Total time spent is greater than 50% in coordination of care (as documented) at patient's floor/unit and/or counseling patient: Coding Level of Care Code None Diagnoses Arthritis of right hip M16.11 Status post left hip replacement Z96.642 Hypertension I10 Chronic pain G89.29 Smokes 1/2 pack per day F17.210
[2024-03-11] MEDS: LR 500ML BOLUS, THEN 15ML/HR IV SCH (05:57)
[2024-03-11] MEDS: LR 60ML/HR IV SCH (05:58)
[2024-03-11] MEDS: ACETAMINOPHEN 500 MG TAB PO SCH ×2 (05:58→15:06)
[2024-03-11] MEDS: METOCLOPRAMIDE HCL 10 MG TABLET PO SCH (05:58)
[2024-03-11] MEDS: FAMOTIDINE 20 MG TAB PO SCH (05:58)
[2024-03-11] MEDS: CeleBREX 200 MG CAP PO SCH (05:58)
[2024-03-11] MEDS ORDERED: BUPIVACAINE 0.5 % 5 MG/1 ML PF 10ML VIAL ONE (06:14)
[2024-03-11] MEDS ORDERED: ATROPINE SULFATE 0.1 MG/ML 10ML SYR IV PRN (06:30)
[2024-03-11] MEDS ORDERED: fentaNYL citrate PF 100 MCG/2 ML VIAL IV PRN (06:30)
[2024-03-11] MEDS ORDERED: ePHEDrine sulfate 50 MG/ML AMP IV PRN (06:30)
[2024-03-11] MEDS ORDERED: ONDANSETRON INJ 2 MG/ML 2 ML VIAL IV PRN ×2 (06:30→09:50)
[2024-03-11] MEDS ORDERED: MIDAZOLAM HCL 1 MG/ML 2ML VIAL ONE ×2 (06:39→06:57)
[2024-03-11] MEDS ORDERED: MoRPHine SULFATE PF 1 MG/ML 10 ML AMP/VIAL ONE (06:39)
[2024-03-11] MEDS ORDERED: fentaNYL citrate PF 100 MCG/2 ML VIAL ONE (06:39)
--- NOTE | 2024-03-11 06:42 | History & Physical Bridge Note ---
Date of Service March 11, 2024 History & Physical Bridge Note I have examined the patient, reviewed the History & Physical and in the interval since the performance of the History & Physical I have noted the following changes of clinical significance: no changes noted
[2024-03-11] MEDS: TRANEXAMIC ACID 1,000 MG **IV Pre-op IV SCH (06:47)
[2024-03-11] MEDS: ceFAZolin 2000MG 2,000 MG/15 ML SYR IV SCH ×2 (07:03→15:09)
[2024-03-11] MEDS ORDERED: KETAMINE HCL 10MG/ML SYR ONE (07:14)
[2024-03-11] MEDS: BUPIVACAINE/EPINEPHRINE 0.5% MPF 1:200,000 30 ML VIAL ONE (07:29)
[2024-03-11] MEDS ORDERED: PROPOFOL IV EMULSION 10 MG/ML 20 ML VIAL IV ONE ×3 (07:30→08:21)
[2024-03-11] MEDS ORDERED: ONDANSETRON INJ 2 MG/ML 2 ML VIAL ONE (07:30)
[2024-03-11] MEDS ORDERED: LIDOCAINE 2% 2 ML VIAL/AMP(20MG/ML) INFIL ONE (07:30)
--- NOTE | 2024-03-11 08:43 | Operative Report ---
PG Post Operative Report Pre & Post Diagnosis Operation Date: 03/11/24 07:00 Pre-Op Diagnosis: Right advanced hip Osteoarthritis Post-Op Diagnosis: Right advanced hip Osteoarthritis I identified the patient and participated in the time-out.: Yes Procedure Operation Date: 03/11/24 07:00 Actual Procedures p Right Total Hip Arthroplasty(Right) - Compa Grant MD Surgeon Compa Grant MD Staff Radiation Therapist Tu García PA-C Estimated Blood Loss 200 Findings Consistent with Post-Op Diagnosis Operative findings were advanced right hip DJD. He extensive grade 4 [id number] disease of the femoral head and acetabulum. He had a very stiff hip. A lot of ossification of his labrum Specimens Right femoral head sent for pathology. Anesthesia Type Spinal MAC Complications none Disposition Accompanied Patient To Recovery: No Indications The patient is a 69-year-old very active gentleman has had a several year history of markedly increasing bilateral hip pain discomfort. He been through extensive conservative treatment which became less successful over time. He had his left hip replaced about 7 months ago and is done well from this. He continued be progressively debilitated by his right hip pain. He elected proceed with right total hip arthroplasty. Description of Procedure Operative implants consist of: 1 Biomet G7 size 60 mm acetabular shell. 2. [place] hole office machine installer. 3. 6.5 cancellous acetabular screws 1 at 35 mm length 125 mm length. 4. Highly cross-linked polyethylene liner with a 60 mm outer diameter and 40 mm inner diameter with a sargent placed inferior and posterior. 5. DePuy Karaya size 13 KLA femoral stem. 6. +5/40 mm ceramic articular ball. The patient was taken the op room, identified, placed on the operating table in the supine position. All conductors were appropriately padded. IV antibiotics fibra anesthesia team. A spinal anesthetic been implemented holding area. The patient was then placed in the left lateral decubitus position. An axillary roll was placed. A stool Birkett position was used for positioning. The right hip and leg were then prepped and draped in usual sterile fashion. A posterolateral approach to the right hip was then performed to a curvilinear incision centered over the greater trochanter. Sharp dissection Through subcutaneous tissue dental of the IT band gluteal fascia with the IT band gluteal fascia incised longitudinally in line with skin incision. The underlying greater bursa was excised. The piriformis and external rotators along with the posterior hip joint capsule then released from the posterior aspect of the hip as a single layer. The hip was internally rotated and dislocated. Femoral neck osteotomy cut was made with a Final Cut about 15 mm above the lesser trochanter. Femoral head was removed and sent for pathology. The femur was retracted anteriorly. Attention drawn the acetabulum. The acetabular labrum was excised. The labrum was extremely sclerotic and ossified. The pulmonary fat was removed. Sequential reaming the acetabulum was then performed again with size 47 progressing up to a 59. I reamed a little bit with the 60 reamer and then placed a 60 mm acetabular shell in about 40 degrees lateral opening and 20 degrees of anteversion. It was fixed with 2 send 6.5 screws. A trial liner was placed. Attention drawn the femur. The proximal femur was entered with a Targovax cutter followed by canal finder. I then broached beginning the size 8 and progressing up to 13. Get excellent fitted to 13. I was not sure we get the 14 down. We trialed the hip. The hip was fairly stable in all positions. Little bit less lax in flexion in Brianne internal rotation. 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 We elected to use a 40 mm head. All trial implants were removed. An apex hole office machine installer was placed. Highly cross-linked polyethylene liner was placed with a sargent placed inferior and posteriorly. A size 13 KLA femoral stem was impacted in position. A +5/40 mm ceramic articular ball was placed. Hip was located and once again found to be stable. Leg lengths seemed equal. Attention was then drawn toward closing. The wounds irrigated coconuts pulsatile lavage solution. We did inject locally with 60 cc of 5% Marcaine with epinephrine. The posterior capsule and external rotators were then repaired through drill holes in the posterior trochanter with #2 Tycron suture. The IT band gluteal fascia then closed #1 PDS suture in a running fashion the subcutaneous tissues then closed 2 layers the deep layer #1 Vicryl suture and subcutaneous tissues with 2-0 Dexon suture in a buried interrupted fashion. Skin was closed skin tabitha. Leg was then cleaned and d ried and sterile dressed with Xeroform, 4 fours, ABD pad and foam tape was applied. Patient then transferred to the recovery room in stable condition. Patient tolerated procedure well and there were no complications. Tu García, my physician addictions counselor assistant, was present for the entire procedure. His assistance was essential and required for appropriate patient positioning, prepping and draping, surgical exposure, performing the technical details of the operation, placement the implants, closure of the wound, and placement of the sterile bandage. I attest to the content of the Intraoperative Record and any orders documented therein. Any exceptions are noted below.
--- NOTE | 2024-03-11 09:20 | Anesthesiology Progress Note ---
Date of Service March 11, 2024 Anesthesia Post Procedure Vital Signs Vital Signs: Temp Pulse Pulse Resp BP BP Pulse Ox 03/11/24 09:15 36.4 C L 87 22 172/65 H 98 03/11/24 09:05 85 17 163/68 H 98 03/11/24 08:55 75 17 166/66 H 97 03/11/24 08:45 88 12 145/58 H 96 03/11/24 08:38 36.2 C L 89 22 162/61 H 93 03/11/24 05:41 36.5 C 89 18 195/85 H 96 O2 Del Method O2 Flow Rate 03/11/24 09:15 Room Air 03/11/24 09:05 Room Air 03/11/24 08:55 Oxymask 4 03/11/24 08:45 Oxymask 6 03/11/24 08:38 Oxymask 6 03/11/24 05:41 Room Air Pain Intensity Right Hip: Pain Intensity: 0 Transfer of Care Handoff Completed per policy Notes Mental Status: alert / awake / arousable Patient Amnestic to Procedure: Yes Nausea / Vomiting: adequately controlled Pain: adequately controlled Airway Patency, RR, SpO2: stable & adequate BP & HR: stable & adequate Hydration State: stable & adequate Neuraxial Anesthesia: was administered and sensory block is resolving Anesthetic Complications: no major complications apparent and Pt Satisfied with anesthetic care
--- NOTE | 2024-03-11 09:29 | XRay Report ---
XR hip 1V RT w pelvis CLINICAL HISTORY: Postoperative evaluation. COMPARISON: Right hip radiographs February 02, 2024. FINDINGS: Alignment of the total right hip arthroplasty is anatomic. There is no periprosthetic frac ture or unexpected radiopaque foreign body. There are 2 acetabular screws and skin tabitha. Left hip arthroplasty is unremarkable. IMPRESSION: Expected findings following total right hip arthroplasty. ACT 112: Negative or not required by law. Electronically signed by: Sloan Sanchez M.D. 03/11/2024 9:28 AM
[2024-03-11] MEDS ORDERED: METOCLOPRAMIDE HCL INJ 5 MG/ML 2 ML VIAL IV PRN (09:50)
[2024-03-11] MEDS ORDERED: tiZANidine HCL 4 MG TABLET PO PRN (09:50)
[2024-03-11] MEDS ORDERED: ALUMINUM/MAGNESIUM SUSP 30 ML UDC PO PRN (09:50)
[2024-03-11] MEDS ORDERED: NALOXONE HCL 0.4 MG/1 ML VIAL/CARP IV PRN (09:50)
[2024-03-11] MEDS ORDERED: MAGNESIUM HYDROXIDE SUSP 30 ML UDC PO PRN (09:50)
[2024-03-11] MEDS ORDERED: bisacodyL 10 MG SUPP PR PRN (09:50)
[2024-03-11] MEDS: SODIUM CHLORIDE 0.9% 1,000 ML IV SCH (10:54)
[2024-03-11] MEDS ORDERED: SENNA 8.6 MG TAB PO SCH (11:00)
[2024-03-11] MEDS: lisinopril 10 MG TAB PO SCH (11:33)
[2024-03-11] MEDS: TAMSULOSIN HCL 0.4 MG CAP PO SCH (11:34)
[2024-03-11] MEDS: MULTIVITAMIN TAB PO SCH (11:34)
[2024-03-11] MEDS: ASPIRIN 81 MG ECTAB PO SCH (11:34)
[2024-03-11] MEDS: KETOROLAC TROMETHAMINE 15 MG/ML VIAL IV SCH (11:40)
[2024-03-11] MEDS: DOCUSATE SODIUM 100 MG CAP PO SCH (11:40)
[2024-03-11] MEDS: HYDROmorphone INJ 0.5 MG/0.5 ML SYR IV PRN (11:43)
[2024-03-11] MEDS: CARISOPRODOL 350 MG TABLET PO PRN (14:30)
--- NOTE | 2024-03-11 15:03 | Hospitalist Consultation ---
Date of Consultation March 11, 2024 Assessment & Plan (1) Hypertension: - chronic history of HTN; acute elevation likely secondary to pain and IV fluids - BP trending upward post operatively, currently 197/97 - AM 10 mg lisinopril given post-operatively at 1133 - received 1L NSS and 1L LR - patient started on 5 mg amlodipine daily - can consider switching ACEi to a long acting ARB in the out patient setting with PCP (2) Status post right hip replacement: - s/p right hip arthroplasty 03/11 - pain management per ortho Plan VTE ppx: SCDs Diet: regular Code status: FULL Supervising Physician Co-Signing Physician Notes Patient seen and examined, chart reviewed, case discussed with Mariya Sandoval PA-C and I agree with the assessment and plan as above except as otherwise noted Labs and images reviewed Kem is seen at the bedside. He reports he feels well, has a history of whitecoat hypertension and gets nervous around doctors and medical provider so generally blood pressure is "okay at home. He has no headache no vision change. He overall feels well but has some discomfort in his postsurgical site. Amlodipine added as above, 1 dose of propranolol added for BP 190 subsequent to this. He feels he has some discomfort, but overall pain is not too bad so do not think he is having severe hypertension from pain alone. May cautiously use hydralazine 2.5 every 6 hours regular if needed for sustained SBP greater than 180. Agree with assessment and management above History of Present Illness Reason for Consultation: Hypertension Requesting Physician: Tu García Attending Physician: Compa Grant MD History of Present Illness Patient is a 69 y/o male s/p right hip arthroplasty today, 03/11/24. He has a past medical history of HTN, tobacco use, basal cell carcinoma, and arthritis. He was found to be hypertensive post-operatively with BP 213/80. He was given his morning dose of lisinopril at 1133 after surgery today. He also received 1L NSS and 2L LR. Patient stated that his pain is a 6/10 right now. He takes his blood pressure at home and it has not been high recently; although has reached the 200s in the past. He stated that he does not smoke and he drinks alcohol only a few times a month. He had 3 shots of [place] royal yesterday. Patient denies headache, dizziness, lightheadedness, vision changes, dyspnea, chest pain, abdominal pain, nausea, vomiting, edema, numbness, tingling. Allergies Allergy/AdvReac Type Severity Reaction Status Date / Time No Known Allergies Allergy Verified 03/11/24 05:37 Home Medications Medication Instructions Recorded Confirmed Type buprenorphine 8 mg-naloxone 2 mg 2 tab sublingual QAM Pain 02/15/21 03/11/24 History sublingual tablet lisinopril 10 mg tablet 10 mg PO QAM 07/17/23 03/11/24 History diclofenac sodium 75 mg 75 mg PO BID PRN pain #60 tabs 11/24/23 03/11/24 Rx tablet,delayed release celecoxib 100 mg capsule (Celebrex) 100 mg PO BID PRN pain #60 caps 02/27/24 03/11/24 Rx tizanidine 4 mg capsule 4 mg PO TID PRN muscle spasticity 03/02/24 03/11/24 Rx #18 caps acetaminophen 500 mg tablet 1,000 mg (2 x 500 mg) PO TID pain 03/09/24 03/11/24 Rx (Tylenol Extra Strength) 30 days #180 tabs aspirin 81 mg tablet,delayed 81 mg PO BID 45 days #90 tabs 03/09/24 03/11/24 Rx release (Lotus Low Dose Aspirin) ketorolac 10 mg tablet 10 mg PO Q6 pain 5 days #20 tabs 03/09/24 03/11/24 Rx ondansetron 4 mg disintegrating 4 mg PO Q8 PRN nausea #20 tabs 03/09/24 03/11/24 Rx tablet sennosides 8.6 mg tablet (Senokot) 8.6 mg PO BID prevent constipation 03/09/24 03/11/24 Rx 14 days #28 tabs tamsulosin 0.4 mg capsule (Flomax) 0.4 mg PO DAILY #7 caps 03/09/24 03/11/24 Rx tramadol 50 mg tablet 50 - 100 mg (1 - 2 x 50 mg) PO Q6 03/09/24 03/11/24 Rx PRN pain #40 tabs carisoprodol 350 mg tablet (Soma) 350 mg PO QID PRN Pain 03/11/24 03/11/24 History Patient History Medical History Systolic ejection murmur ECHO 2019 showed no significant valvular pathology No significant murmur noted at PAT appt 07/22/23 and 02/02/24 (heart sounds mildly diminished) Tinnitus of both ears Lumbar radiculopathy Degenerative joint disease of left hip Hx of drug abuse approx 15 yrs ago Right shoulder pain has had torn rotator cuff x yrs History of shingles Questionable - around 2020 Neuropathy Mild- feet HTN (hypertension) controlled, stable per pt Surgical History History of total left hip replacement 07/30/23 Hx of colonoscopy Hx of basal cell carcinoma excision History of esophagogastroduodenoscopy (EGD) History of tooth extraction History of right inguinal hernia repair Status post osteotomy left foot--hardware in place Family History Mother Ovarian cancer Uncle Family history of esophageal cancer Other No family history of adverse response to anesthesia Denies family history of Prostate cancer Myocardial infarction Breast cancer Colorectal cancer Social History Smoking Status: Former smoker Tobacco Type: Cigarettes Age Quit Using Tobacco: 60; packs per day: 1; Smoking End Date: over 5 years ago; Second Hand Exposure: No; Do You Dip or Chew Tobacco: No; Tobacco Cessation Education Requested by Patient: No Hx Alcohol Use: Yes Alcohol type: beer and wine Alcohol Intake Frequency: 2-4 x/Month Hx Substance Use: Yes Last Used Substance: Unknown Last Used Substance Other:: 30 years ago-"I used them all" Preferred Language: Wolof Communication Ability: Effective Visual Impairment: No Limitations Hearing Ability: Normal Environmental Auditor Required: No Beliefs That Will Affect Care: None marital status: Current Living Situation: Spouse current occupational status: employed 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 How many Children do You have: 2 Other Information That Helps Us Care for You: No Feels Safe at Home: Yes Safety Concerns: Feels Safe At This Time Childhood Exposure to Second-Hand Smoke: Yes Diet: regular caffeine: Yes during the past year weight has: decreased > 10 lbs Dental Care, Regularly: No Physical Activity Frequency: Does not Exercise Physical Activity Frequency Comment: walking 2x weekly Seatbelt Use: always Sunscreen Use: Yes Do you think of yourself as: straight/heterosexual Assistive Devices: Denture - Upper and Glasses Review of Systems Review of Systems: see HPI Physical Exam Physical Exam: The patient is awake, alert and oriented 3, well developed and well nourished, normocephalic and atraumatic, in no acute distress. Non-toxic appearing. HEENT- EOMI, mucous membranes moist. Hearing grossly intact. Heart-normal S1 and S2. No murmurs, rubs or gallops. Lungs-clear bilaterally, no respiratory distress, no accessory muscle use. Abdomen-normal bowel sounds and soft. No ascites noted. Non-tender. Extremities- no clubbing, cyanosis, or edema. Ice pack on right hip. Rheumatologic-normal range of motion. Psychiatric- anxious affect. Results & Data Results & Data Vital Signs (Past 12 Hours) Vital Signs Temp Pulse Pulse Resp BP BP Pulse Ox 03/11/24 14:09 36.4 C L 102 H 14 213/80 H 96 03/11/24 13:44 96 H 20 210/79 H 97 03/11/24 12:33 36.6 C 88 16 206/88 H 97 03/11/24 11:30 37 C 86 16 203/82 H 96 03/11/24 10:35 36.4 C L 78 16 178/95 H 95 03/11/24 10:05 36.4 C L 76 16 155/71 H 98 03/11/24 09:40 36.3 C L 73 16 185/78 H 97 03/11/24 09:25 36.4 C L 85 17 174/72 H 96 03/11/24 09:15 36.4 C L 87 22 172/65 H 98 03/11/24 09:05 85 17 163/68 H 98 03/11/24 08:55 75 17 166/66 H 97 03/11/24 08:45 88 12 145/58 H 96 03/11/24 08:38 36.2 C L 89 22 162/61 H 93 03/11/24 05:41 36.5 C 89 18 195/85 H 96 O2 Del Method O2 Flow Rate 03/11/24 14:09 Room Air 03/11/24 13:44 Room Air 03/11/24 12:33 Room Air 03/11/24 11:30 Room Air 03/11/24 10:35 Room Air 03/11/24 10:05 Room Air 03/11/24 09:40 Room Air 03/11/24 09:25 Room Air 03/11/24 09:15 Room Air 03/11/24 09:05 Room Air 03/11/24 08:55 Oxymask 4 03/11/24 08:45 Oxymask 6 03/11/24 08:38 Oxymask 6 03/11/24 05:41 Room Air PG Care Time/CCT Total # of Minutes Spent Total Time Spent with Patient: Total time spent is greater than 50% in coordination of care (as documented) at patient's floor/unit and/or counseling patient: Coding Level of Care Code None Diagnoses Hypertension I10 Status post right hip replacement Z96.641
[2024-03-11] MEDS: traMADol HCL 50 MG TABLET PO PRN (15:07)
[2024-03-11] MEDS: TRANEXAMIC ACID / 0.7% NACL 1,000 MG/100 ML BAG IV SCH (15:09)
[2024-03-11] MEDS ORDERED: MELATONIN 3 MG TAB PO PRN (17:12)
[2024-03-11] MEDS: amLODIPine BESYLATE 5 MG TAB PO SCH (18:38)
[2024-03-11] MEDS: ASCORBIC ACID 500 MG TAB PO SCH (18:39)
[2024-03-11] MEDS ORDERED: hydrALAZINE HCL 20 MG/ML VIAL IV PRN (19:38)
[2024-03-11] MEDS: SENNA 8.6 MG TAB PO SCH (20:20)
[2024-03-11] MEDS: LABETALOL HCL 100 MG TAB PO ONE (20:20)
[2024-03-12 03:14] VITALS: TEMP 97.9; O2SAT 96
[2024-03-12 06:26] LABS: Hematocrit (blood only) 35.1 % (42.0-52.0); Hemoglobin 12.1 g/dl (14.0-18.0); Mean Corpuscular Hemoglobin 29.8 pg (25.0-34.0); Mean Corpuscular Hgb Conc 34.5 g/dL (32.0-36.0); Mean Corpuscular Volume 86.5 fL (80.0-100.0); Red Blood Count 4.06 M/uL (4.70-6.10); White Blood Count 11.52 K/ul (4.8-10.8)
[2024-03-12 06:27] LABS: Basophils # (auto) 0.01 K/uL (0.00-0.20); Basophils % (auto) 0.1 %; Eosinophils # (auto) 0.03 K/uL (0.00-0.50); Eosinophils % (auto) 0.3 %; Immature Granulocytes # (auto) 0.07 K/uL (0.01-0.20); Immature Granulocytes % (auto) 0.6 %; Lymphocytes # (auto) 0.92 K/uL (1.20-3.40); Mean Platelet Volume 8.3 fL (9.4-12.4); Monocytes # (auto) 1.36 K/uL (0.11-0.59); Monocytes % (auto) 11.8 %; Neutrophils # (auto) 9.13 K/uL (1.40-6.50); Neutrophils % (auto) 79.2 %; Platelet Count 262 K/uL (130-400); RDW Coefficient of Variation 12.8 % (11.5-14.5); RDW Standard Deviation 40.3 fL (36.4-46.3)
[2024-03-12 06:46] LABS: BUN Creatinine Ratio 17.6 (10-20); Calcium 8.9 mg/dl (8.6-10.3); Creatinine Clr Calc Pharmacy 98.1 ml/min; Est GFR (African American) 99.3 ml/min; Est GFR (Non-African American) 85.7 ml/min; Potassium 3.8 mmol/L (3.5-5.1)
--- NOTE | 2024-03-12 07:38 | Orthopedic Progress Note ---
Date of Service March 12, 2024 Assessment & Plan (1) Status post right hip replacement: Plan: 69-year-old gentleman postop day 1 from a right hip replacement. He is doing pretty well. Pains controlled. Seems much more comfortable this morning. Hips located. He is neurologically intact. Plan: 1. DVT prophylaxis including Thiede teds, SCDs, aspirin twice a day. 2. PT/OT. Weight-bear as tolerated. Right total hip protocol. 3. Pain control doing okay with current pain regimen. 4. Disposition plan is to discharge to home with some home health later today. Admission and Anticipated Discharge Date Admission Date: March 11, 2024 Subjective 69-year-old gentleman postop day 1 from right total hip placement. He is doing pretty well this morning. Seems to be much more calm and less agitated and irritable this morning. His pain is controlled. Physical Exam Physical Exam: Physical exam shows a pleasant middle-age male. Lying bed looks pretty comfortable. Examination of the right hip and leg reveals dressing be clean dry and intact. Thigh is soft and supple. Hips located. He is neurologically intact. Constitutional: WD/WN, vitals as above Respiratory: normal respiratory effort, lungs clear to auscultation Cardiovascular: RRR, no murmur, no edema Gastrointestinal (Abdomen): normal bowel sounds, soft, nontender, no hepatosplenomegaly Results & Data Vital Signs (Past 12 Hours) Vital Signs Temp Pulse Resp BP BP Pulse Ox O2 Del Method 03/12/24 03:12 36.6 C 102 H 18 184/102 H 96 Room Air 03/11/24 23:01 37.3 C 102 H 16 166/77 H 92 Room Air Laboratory Results Hemoglobin is 12.1. Hematocrit is 35.1. Electrolytes are stable.
[2024-03-12 07:55] VITALS: BP 171/80; PULSE 89; RESP 16
[2024-03-12] MEDS: dexAMETHasone 10 MG in SYRINGE 0 ML IV SCH (08:15)
--- NOTE | 2024-03-12 08:19 | Hospitalist Progress Note ---
Date of Service March 12, 2024 Assessment & Plan (1) Hypertension: Plan: - chronic history of HTN; acute elevation likely secondary to pain and IV fluids - BP trending upward post operatively, currently 197/97 - AM 10 mg lisinopril given post-operatively at 1133 - patient started on 5 mg amlodipine daily 03/11; plan to discharge home on 2.5 mg daily with PCP follow up - can consider switching ACEi to a long acting ARB in the out patient setting with PCP (2) Status post right hip replacement: Plan: - s/p right hip arthroplasty 03/11 - pain management per ortho - d/c home with home health 03/12 Plan VTE ppx: SCDs Diet: regular Code status: FULL Medically cleared for discharge home today 03/12/24 with addition of 2.5 mg amlodipine, sent to patient's pharmacy. Admission and Anticipated Discharge Date Admission Date: March 11, 2024 Supervising Physician Co-Signing Physician Notes During face to face encounter, I obtained a physical examination, discussed hospital stay with patient and discharge instructions with patient. I discussed discharge plan of care with JARRET Sandoval. I reviewed above note and agree with it except for the following: Patient reports no new symptoms. Exam: NAD, Heart: RRR, NL S1 S2 Lungs: Clear Abd: soft, NT/ND Patient will be placed on amlodipine at 2.5 mg once daily. Will have patient followup with PCP and defer further hypertension management. Subjective Patient seen at beside, doing well with no acute events overnight. S/p right hip arthroplasty yesterday. His pain has been well controlled and he tolerated PT and OT well this morning. His blood pressure has decreased since start of amlodipine last night. Patient denies headache, dizziness, lightheadedness, vision changes, cough, dyspnea, chest pain, nausea, edema, numbness, tingling. He is planning for discharge later today and will follow up with his PCP regarding his new amlodipine prescription and penitentiary BP control. Review of Systems Review of Systems: see HPI Physical Exam Physical Exam: The patient is awake, alert and oriented 3, well developed and well nourished, normocephalic and atraumatic, in no acute distress. Non-toxic appearing. HEENT- EOMI, mucous membranes moist. Hearing grossly intact. Heart-normal S1 and S2. No murmurs, rubs or gallops. Lungs-clear bilaterally, no respiratory distress, no accessory muscle use. Abdomen-normal bowel sounds and soft. No ascites noted. Non-tender. Extremities- no clubbing, cyanosis, or edema. Rheumatologic-normal range of motion. Psychiatric- anxious affect. Results & Data Results & Data Vital Signs (Past 12 Hours) Vital Signs Temp Pulse Pulse Resp BP BP Pulse Ox 03/12/24 07:52 36.6 C 89 16 171/80 H 96 03/12/24 03:12 36.6 C 102 H 18 184/102 H 96 03/11/24 23:01 37.3 C 102 H 16 166/77 H 92 O2 Del Method 03/12/24 07:52 Room Air 03/12/24 03:12 Room Air 03/11/24 23:01 Room Air PG Care Time/CCT Total # of Minutes Spent Total Time Spent with Patient: Total time spent is greater than 50% in coordination of care (as documented) at patient's floor/unit and/or counseling patient: Coding Level of Care Code None Diagnoses Hypertension I10 Status post right hip replacement Z96.641
[2024-03-12] MEDS: BUPRENORPHINE/NALOXONE 8/2 MG TAB SL SCH (08:20)
[2024-03-13] MEDS ORDERED: amLODIPine BESYLATE 5 MG TAB PO SCH (09:00)
--- NOTE | 2024-03-14 21:54 | Billing Data ---
Date of Service March 12, 2024 Coding Level of Care Code 51678 INT INP/OBS CARE
== END 2024-03-12 12:08 | disposition home health service (06) ==
LOC: ASU 05:10 → 3E 05:10
DX: M16.11 Unilateral primary osteoarthritis, right hip; Z79.82 Long term (current) use of aspirin; Z79.899 Other long term (current) drug therapy; Z87.891 Personal history of nicotine dependence; I10 Essential (primary) hypertension